=== PATIENT | female | born 1940 | race Caucasian/White ===

== ENCOUNTER 2016-11-18 11:47 | Emergency (ER) | payer OTHER ==
[~2016-11-18] VITALS: Ht 160 cm; Wt 47.6 kg
[2016-11-18] MEDS ORDERED: TEMA15CA PO (12:03)
[2016-11-18] MEDS ORDERED: CYAN100T3 PO (12:03)
[2016-11-18] MEDS ORDERED: LORA0.5T PO (12:03)
[2016-11-18] MEDS ORDERED: TRAZ-144 PO (12:03)
[2016-11-18] MEDS ORDERED: TRAM50TA2 PO (12:03)
--- NOTE | 2016-11-18 12:09 | NUR ---
Dr. Zambrano at bedside for MSE.
--- NOTE | 2016-11-18 12:30 | NUR ---
Saline lock #20 inserted IV via right forearm. 12 lead ekg done, blood drawn for admission labs. to radiology dept for head ct and abd/pelvis ct. daughter Gillian at the bedside
[2016-11-18 12:39] LABS: BASOPHILS # (AUTO) 0.1 K/uL (0.0-8.0); BASOPHILS % (AUTO) 0.7 % (0.0-2.0); EOSINOPHILS # (AUTO) 0.2 K/uL (0.0-0.7); EOSINOPHILS % (AUTO) 1.9 % (0.0-7.0); HEMATOCRIT 37.5 % (37-47); HEMOGLOBIN 12.6 G/DL (12.0-16.0); LYMPHOCYTES # (AUTO) 1.2 K/UL (0.8-4.8); LYMPHOCYTES % (AUTO) 13.4 % (20.5-51.5); MEAN CORPUSCULAR HGB CONC 34 g/dL (32.0-37.0); MEAN CORPUSCULAR VOLUME 89.7 FL (81.0-99.0); MONOCYTES # (AUTO) 0.3 K/UL (0.1-1.30); MONOCYTES % (AUTO) 3.6 % (0.0-11.0); NEUTROPHILS # (AUTO) 7.3 K/UL (1.8-8.9); NEUTROPHILS % (AUTO) 80.4 % (38.5-71.5); PLATELET COUNT (AUTO) 314 K/UL (150-450); RED BLOOD CELL COUNT(AUTO) 4.18 MIL/UL (4.2-5.4); WHITE BLOOD COUNT (AUTO) 9.1 K/UL (4.0-11.2)
[2016-11-18 12:42] LABS: CARBON DIOXIDE 31 mmol/L (21-32); CHLORIDE 104 mmol/L (98-107); GLUCOSE 145 mg/dL (74-106); POTASSIUM 3.6 mmol/L (3.5-5.1); UREA NITROGEN, BLOOD 21 mg/dL (7-18)
[2016-11-18 12:58] LABS: ALANINE AMINOTRANSFERASE 15 U/L (14-59); ALKALINE PHOSPHATASE 90 U/L (50-136); ASPARTATE AMINOTRANSFERASE 20 U/L (15-37); BILIRUBIN,DIRECT 0.1 mg/dL (0.0-0.2); BILIRUBIN,TOTAL 0.4 mg/dL (0.2-1.0)
--- NOTE | 2016-11-18 13:00 | NUR ---
back from Radiology. attempted urinary catheterization. uncooperative and restless. md aware will lauro fisher
--- NOTE | 2016-11-18 13:12 | NUR ---
medicated with IV ativan 1mg for anxiety and restlessness
--- NOTE | 2016-11-18 13:30 | NUR ---
catheterized aseptically for urine specimen.
[2016-11-18 13:44] LABS: *BILIRUBIN,URIN NEGATIVE (NEGATIVE); *BLOOD, URINE NEGATIVE (NEGATIVE); *CLARITY,URINE SLIGHTLY CLOUDY (CLEAR); *COLOR,URINE YELLOW (YELLOW); *KETONES,URINE NEGATIVE (NEGATIVE); *PROTEIN,URINE NEGATIVE (NEGATIVE); *UROBILINOGEN,URINE 0.2 E.U./dl (NORMAL); LEUKOCYTE ESTERASE ,URINE TRACE (NEGATIVE); NITRITE, URINE POSITIVE (NEGATIVE); UGLUCOSE NEGATIVE (NEGATIVE)
[2016-11-18 13:50] LABS: BACTERIA,URINE MANY /HPF (NONE SEEN); RBC,URINE 0-3 /HPF (0-3); SQUAMOUS EPITHELIAL CELL,UR FEW /HPF (NONE SEEN)
--- NOTE | 2016-11-18 14:20 | NUR ---
blood cultures times 2 drawn by Lab
--- NOTE | 2016-11-18 14:25 | NUR ---
ceftriaxone 1 gram started IVPb
--- NOTE | 2016-11-18 14:30 | NUR ---
IV NS started at 75 ml/hr
--- NOTE | 2016-11-18 14:45 | NUR ---
azithromax started IVPB
[2016-11-18 16:12] VITALS: BP 156/57
== END 2016-11-18 16:17 | disposition left against medical advice (07) ==
LOC: ER 11:47
DX: J18.9 Pneumonia, unspecified organism (principal); Z87.891 Personal history of nicotine dependence; K21.9 Gastro-esophageal reflux disease without esophagitis; E11.9 Type 2 diabetes mellitus without complications
CPT/HCPCS: 36415; 70450; 71010; 74176; 80048; 80076; 81001; 83880; 84443; 84484; 85025; 85730; 87040 ×2; 87077; 87086; 87186; 93005; 96365; 96368; 96375; 99285; A4663; J0456; J0696; J2060; J7030; J7060 ×2; 70030-TC

== ENCOUNTER 2017-07-03 12:01 | Inpatient (IN) | payer MEDICARE, OTHER ==
[~2017-07-03] VITALS: Ht 160 cm; Wt 45.4 kg
[~2017-07-03 12:01] MED LIST: CYAN100T3 PO; LORA0.5T PO; TEMA15CA PO; TRAM50TA2 PO; TRAZ-144 PO
[2017-07-03] MEDS ORDERED: DOCU-141 PO (12:48)
[2017-07-03] MEDS ORDERED: PARO-64 PO (12:49)
[2017-07-03] MEDS ORDERED: IV NORMAL SALINE 500 ML BAG IV ONE (13:00)
[2017-07-03 13:07] LABS: BASOPHILS # (AUTO) 0.1 K/uL (0.0-8.0); BASOPHILS % (AUTO) 0.6 % (0.0-2.0); EOSINOPHILS # (AUTO) 0.2 K/uL (0.0-0.7); EOSINOPHILS % (AUTO) 1.7 % (0.0-7.0); HEMATOCRIT 37.7 % (31.2-41.9); HEMOGLOBIN 12.8 g/dL (10.9-14.3); LYMPHOCYTES # (AUTO) 2.3 K/uL (20.0-40.0); MEAN CORPUSCULAR HEMOGLOBIN 31.1 uug (24.7-32.8); MEAN CORPUSCULAR HGB CONC 34 g/dL (32.3-35.6); MEAN CORPUSCULAR VOLUME 91.9 fL (75.5-95.3); MONOCYTES # (AUTO) 0.7 K/uL (2.0-10.0); MONOCYTES % (AUTO) 5.8 % (0.0-11.0); NEUTROPHILS # (AUTO) 9.4 K/uL (1.8-8.9); NEUTROPHILS % (AUTO) 73.9 % (38.5-71.5); PLATELET COUNT (AUTO) 391 K/uL (179-408); RED BLOOD CELL COUNT(AUTO) 4.11 MIL/uL (3.63-4.92); WHITE BLOOD COUNT (AUTO) 12.8 K/uL (3.8-11.8)
[2017-07-03 13:10] LABS: CARBON DIOXIDE 26 mmol/L (21-32); CHLORIDE 106 mmol/L (98-107); GLUCOSE 102 mg/dL (74-106); POTASSIUM 4.1 mmol/L (3.5-5.1); UREA NITROGEN, BLOOD 28 mg/dL (7-18)
[2017-07-03 13:16] LABS: ALANINE AMINOTRANSFERASE 17 U/L (14-59); ALKALINE PHOSPHATASE 54 U/L (50-136); ASPARTATE AMINOTRANSFERASE 12 U/L (15-37); BILIRUBIN,DIRECT 0.1 mg/dL (0.0-0.2); BILIRUBIN,TOTAL 0.4 mg/dL (0.2-1.0); LIPASE 141 U/L (73-393); TOTAL PROTEIN, SERUM 7.9 g/dL (6.4-8.2)
[2017-07-03 13:28] LABS: *BILIRUBIN,URIN NEGATIVE (NEGATIVE); *BLOOD, URINE NEGATIVE (NEGATIVE); *CLARITY,URINE CLOUDY (CLEAR); *COLOR,URINE YELLOW (YELLOW); *KETONES,URINE NEGATIVE (NEGATIVE); *PROTEIN,URINE NEGATIVE (NEGATIVE); *UROBILINOGEN,URINE 0.2 E.U./dl (NORMAL); LEUKOCYTE ESTERASE ,URINE TRACE (NEGATIVE); NITRITE, URINE POSITIVE (NEGATIVE); PH,URINE 5.5 (5.0-8.0); UGLUCOSE NEGATIVE (NEGATIVE)
[2017-07-03 13:34] LABS: BACTERIA,URINE MANY /HPF (NONE SEEN); RBC,URINE 0-3 /HPF (0-3); SQUAMOUS EPITHELIAL CELL,UR FEW /HPF (NONE SEEN)
--- NOTE | 2017-07-03 13:35 | NUR ---
report received from Yaz CAST from ED. 77yr old female being admitted for DEHYDRATION/FAILURE TO THRIVE. under Dr Jin velez. saline lock to right hand Addendum: 07/03/17 at 1630 by ALBERTO FAITH RN Amended: Links added.
--- NOTE | 2017-07-03 13:40 | NUR ---
Patient is ready for admission & transfer to our 2nd floor, pending "turn-over papers" from ER registration staff [email or web address]. Patient is resting comfortably on gurney with eyes closed w/ family at bedside.
--- NOTE | 2017-07-03 14:27 | NUR ---
Pt. admitted to M/S, under care of Dr. Abdi Belongs List completed
[2017-07-03 15:19] VITALS: BP 128/64
--- NOTE | 2017-07-03 15:20 | NUR ---
call to Dr Abdi placed re admission orders. daughter at the bedside. expressed kelin for patient to be on pureed diet and DNR status Addendum: 07/03/17 at 1530 by ALBERTO FAITH RN Amended: Links added.
--- NOTE | 2017-07-03 16:57 | NUR ---
talked to dr villa. will place admission orders himself. informed of family's concerns Addendum: 07/03/17 at 1657 by ALBERTO FAITH RN Amended: Links added.
[2017-07-03] MEDS ORDERED: Z GUARD REMEDY PASTE 57 GM TUBE TOP PRN (17:00)
[2017-07-03] MEDS ORDERED: ONDANSETRON 4 MG/2 ML VIAL IV PRN (17:00)
[2017-07-03] MEDS ORDERED: MAGNESIUM HYDROXIDE 30 ML LIQUID UDC PO PRN (17:00)
[2017-07-03] MEDS ORDERED: ACETAMINOPHEN 325 MG TABLET PO PRN (17:00)
[2017-07-03] MEDS ORDERED: ZOLPIDEM 5 MG TABLET PO PRN (17:00)
[2017-07-03] MEDS: PAROXETINE HCL 20 MG TABLET PO SCH (17:38)
[2017-07-03] MEDS: LORAZEPAM 0.5 MG TABLET PO SCH (17:38)
[2017-07-03] MEDS: TRAMADOL HCL 50 MG TABLET PO SCH (17:38)
[2017-07-03] MEDS: DOCUSATE SODIUM 100 MG CAPSULE PO SCH (17:38)
[2017-07-03] MEDS: CEFTRIAXONE 1 G in IV DEXTROSE 5% 50 ML IV SCH (18:11)
--- NOTE | 2017-07-03 19:30 | NUR ---
RECEIVED PATIENT IN BED, AWAKE, RYTHM SINUS RYTHM AT THIS TIME, NO S/S OF PAIN NOR DISCOMFORT, KEPT CLEAN AND DRY. TURN AND REPOSITION, KEPT CLEAN AND DRY.
[2017-07-03 20:00] VITALS: BP 131/47
[2017-07-03] MEDS: TRAZODONE 50 MG TABLET PO SCH (20:27)
[2017-07-03] MEDS: TEMAZEPAM 15 MG CAPSULE PO SCH (21:08)
[2017-07-04] VITALS: BP 125/64
[2017-07-04 04:00] VITALS: BP 103/64
[2017-07-04 06:39] LABS: BASOPHILS # (AUTO) 0.1 K/uL (0.0-8.0); BASOPHILS % (AUTO) 0.5 % (0.0-2.0); EOSINOPHILS # (AUTO) 0.2 K/uL (0.0-0.7); EOSINOPHILS % (AUTO) 1.7 % (0.0-7.0); HEMATOCRIT 34.6 % (31.2-41.9); HEMOGLOBIN 11.6 g/dL (10.9-14.3); MEAN CORPUSCULAR HEMOGLOBIN 30.9 uug (24.7-32.8); MEAN CORPUSCULAR HGB CONC 34 g/dL (32.3-35.6); MEAN CORPUSCULAR VOLUME 91.9 fL (75.5-95.3); MONOCYTES # (AUTO) 0.6 K/uL (2.0-10.0); MONOCYTES % (AUTO) 5.5 % (0.0-11.0); NEUTROPHILS # (AUTO) 8.7 K/uL (1.8-8.9); NEUTROPHILS % (AUTO) 75.3 % (38.5-71.5); PLATELET COUNT (AUTO) 332 K/uL (179-408); RED BLOOD CELL COUNT(AUTO) 3.76 MIL/uL (3.63-4.92); WHITE BLOOD COUNT (AUTO) 11.6 K/uL (3.8-11.8)
--- NOTE | 2017-07-04 06:45 | NUR ---
PATIENT SLEPT MOST OF THE NIGHT, RYTHM SINUS RYTHM, NO COMPLAIN OF PAIN AT THIS TIME, TURN AND REPOSITION EVERY TWO HOURS, CALL LIGHT WITHIN IN REACH.
[2017-07-04 07:07] LABS: CARBON DIOXIDE 24 mmol/L (21-32); CHLORIDE 107 mmol/L (98-107); CHOLESTEROL 113 mg/dL (<200); CREATININE 0.9 mg/dL (0.6-1.3); GLUCOSE 106 mg/dL (74-106); HDL CHOLESTEROL 32 mg/dL (40-60); MAGNESIUM 2.2 mg/dL (1.8-2.4); PHOSPHOROUS 3.1 mg/dL (2.5-4.9); POTASSIUM 4.4 mmol/L (3.5-5.1); TRIGLYCERIDES 49 MG/DL (30-150); UREA NITROGEN, BLOOD 26 mg/dL (7-18)
[2017-07-04 07:13] LABS: THYROID STIMULATING HORMONE 3.676 mIU/mL (0.358-3.740)
--- NOTE | 2017-07-04 07:30 | NUR ---
Awake, oriented to name. south african speaking. On moderate high back rest.
[2017-07-04] MEDS: TRAMADOL HCL 50 MG TABLET PO SCH ×2 (09:00→17:00)
--- NOTE | 2017-07-04 09:00 | NUR ---
Assisted with meal, on puree with aspiration precaution, able to eat 50 %
[2017-07-04] MEDS: PAROXETINE HCL 20 MG TABLET PO SCH (09:52)
[2017-07-04] MEDS: DOCUSATE SODIUM 100 MG CAPSULE PO SCH ×2 (09:52→17:42)
[2017-07-04] MEDS: LORAZEPAM 0.5 MG TABLET PO SCH ×2 (09:52→17:42)
[2017-07-04] MEDS: CYANOCOBALAMIN 100 MCG TABLET PO SCH (09:53)
[2017-07-04 11:20] VITALS: BP 112/56
[2017-07-04 15:18] VITALS: BP 112/59
[2017-07-04] MEDS: CEFTRIAXONE 1 G in IV DEXTROSE 5% 50 ML IV SCH (17:53)
--- NOTE | 2017-07-04 18:14 | NUR ---
Family at bedside assisting with meal.
--- NOTE | 2017-07-04 19:45 | NUR ---
RECEIVED PATIENT IN BED, AWAKE BUT FORGETFUL, NO SOB NO CHEST PAIN NOTED, KEPT CLEAN AND DRY.
[2017-07-04] MEDS: TRAZODONE 50 MG TABLET PO SCH (20:18)
[2017-07-04 20:39] VITALS: BP 129/62
[2017-07-04] MEDS: TEMAZEPAM 15 MG CAPSULE PO SCH (21:00)
--- NOTE | 2017-07-04 21:20 | NUR ---
PATIENT ASLEEP ALREADY, HOLD RESTORIL AT THIS TIME.
[2017-07-05 04:56] VITALS: BP 162/71
--- NOTE | 2017-07-05 06:58 | NUR ---
PATIENT SLEPT MOST OF THE NIGHT, NO SOB NO CHEST PAIN, NOTED, TURN AND REPOSITION, KEPT CLEAN AND DRY, KEPT COMFORTABLE.
[2017-07-05] MEDS: TRAMADOL HCL 50 MG TABLET PO SCH ×2 (08:48→16:51)
[2017-07-05] MEDS: CYANOCOBALAMIN 100 MCG TABLET PO SCH (08:48)
[2017-07-05] MEDS: LORAZEPAM 0.5 MG TABLET PO SCH ×2 (08:48→16:50)
[2017-07-05] MEDS: PAROXETINE HCL 20 MG TABLET PO SCH (08:48)
[2017-07-05] MEDS: DOCUSATE SODIUM 100 MG CAPSULE PO SCH ×3 (08:48→17:00)
[2017-07-05 11:03] VITALS: BP 103/45
[2017-07-05] MEDS: CEPHALEXIN MONOHYDRATE 500 MG CAPSULE PO SCH ×2 (14:53→21:27)
[2017-07-05 15:08] VITALS: BP 101/43
--- NOTE | 2017-07-05 18:00 | NUR ---
Patient visited by daughter/spouse. Patient is alert, in no distress. Encouraged po intake. No aspiration noted. Will continue to monitor.
--- NOTE | 2017-07-05 19:00 | NUR ---
RECEIVED PT AWAKE , ALERT , ORIENTEDX2.PT SHOWS NO SIGNS OF DISTRESS. PT IV INTACT AND PATENT AND IN SALINE LOCK. . CALL LIGHT WITHIN REACH. BED ALARM ON AND IN LOW POSITION, SIDE RAILS UPX2. WILL CONTINUE TO MONITOR.
[2017-07-05 20:00] VITALS: BP 131/57
[2017-07-05] MEDS: TEMAZEPAM 15 MG CAPSULE PO SCH (21:27)
[2017-07-05] MEDS: TRAZODONE 50 MG TABLET PO SCH (21:27)
[2017-07-06 04:00] VITALS: BP 133/57
--- NOTE | 2017-07-06 06:14 | NUR ---
PT SLEPT THROUGHOUT THE SHIFT. PT SHOWS NO SIGNS OF DISTRESS. PT IV INTACT AND PATENT. PRESCRIBED MEDICATION GIVEN AND PT TOLERATED IT WELL. PT TURNED AND REPOSITIONED.HAD 1 BOWEL MOVEMENT DURING MY SHIFT. VITAL SIGNS WITHIN NORMAL LIMIT. PT STABLE. CALL LIGHT WITHIN REACH. BED ALARM ON AND IN LOW POSITION, SIDE RAILS UPX2. WILL ENDORSE TO DAYSHIFT NURSE.
[2017-07-06] MEDS ORDERED: CEPH500C2 PO (08:37)
[2017-07-06] MEDS ORDERED: MAGN400O6 PO (08:37)
[2017-07-06] MEDS ORDERED: MENT71OI TOP (08:37)
[2017-07-06] MEDS: DOCUSATE SODIUM 100 MG CAPSULE PO SCH ×2 (09:00→17:00)
[2017-07-06] MEDS: TRAMADOL HCL 50 MG TABLET PO SCH ×2 (09:19→17:06)
[2017-07-06] MEDS: LORAZEPAM 0.5 MG TABLET PO SCH ×2 (09:19→17:06)
[2017-07-06] MEDS: CYANOCOBALAMIN 100 MCG TABLET PO SCH (09:19)
[2017-07-06] MEDS: PAROXETINE HCL 20 MG TABLET PO SCH (09:19)
[2017-07-06] MEDS: CEPHALEXIN MONOHYDRATE 500 MG CAPSULE PO SCH (09:20)
[2017-07-06 11:44] VITALS: BP 123/64
[2017-07-06 15:14] VITALS: BP 124/70
--- NOTE | 2017-07-06 15:15 | NUR ---
Patient discharged to [facility]. Discharge papers/instructions/teachings provided to daughter Elin. Family verbalized understanding. Patient's belongings signed and accounted for.
--- NOTE | 2017-07-06 16:30 | NUR ---
Report provided to SERENE Jefferson from [facility]. Additional/new prescriptions attached to the discharge papers. Copy was given to the daughter.
--- NOTE | 2017-07-06 18:40 | NUR ---
Patient transported by ambulance to [facility]. Patient is alert, in no distress. IV access removed, ID band removed. VS stable, afebrile.
== END 2017-07-06 18:30 | DRG 871 ==
LOC: ER 12:04 → TELE 14:02 → MED 07-04 17:28
PROVIDERS: ADMIT Internal Medicine; ATTEND Internal Medicine
DX: A41.9 Sepsis, unspecified organism (principal); G92 Toxic encephalopathy; E86.9 Volume depletion, unspecified; E11.9 Type 2 diabetes mellitus without complications; N39.0 Urinary tract infection, site not specified; F20.9 Schizophrenia, unspecified; G30.9 Alzheimer's disease, unspecified; F02.80 Dementia in other diseases classified elsewhere, unspecified severity, without behavioral disturbance, psychotic disturbance, mood disturbance, and anxiety; R62.7 Adult failure to thrive; B96.1 Klebsiella pneumoniae [K. pneumoniae] as the cause of diseases classified elsewhere; K21.9 Gastro-esophageal reflux disease without esophagitis; I10 Essential (primary) hypertension; F31.9 Bipolar disorder, unspecified; M19.90 Unspecified osteoarthritis, unspecified site; F39 Unspecified mood [affective] disorder
CPT/HCPCS: 36415; 70030-TC; 70450; 71045; 82746; 83690; 83735; 84100; 84443; 85025; 85730; 86592; 87077; 87086; 93005; A4663; C1758; J0696; J7040; J7060